=== PATIENT | female | born 1955 ===

== ENCOUNTER 2018-11-29 14:13 | Emergency (ER) | payer OTHER ==
[~2018-11-29] VITALS: Ht 167.6 cm; Wt 83.9 kg
== END 2018-11-29 16:45 | disposition home or self-care (01) ==
LOC: ER 14:13
DX: S50.11XA Contusion of right forearm, initial encounter (principal); W18.2XXA Fall in (into) shower or empty bathtub, initial encounter; Y93.89 Activity, other specified; Y92.012 Bathroom of single-family (private) house as the place of occurrence of the external cause; Y99.8 Other external cause status